=== PATIENT | female | born 1975 | race Caucasian/White ===

== ENCOUNTER 2021-02-05 18:57 | Emergency (ER) | payer OTHER ==
[~2021-02-05] VITALS: Ht 157.5 cm; Wt 52.2 kg
[2021-02-05] MEDS ORDERED: ONE DAILY WITH1 EACH (19:11)
== END 2021-02-05 20:26 | disposition home or self-care (01) ==
LOC: ER 18:57
DX: S09.8XXA Other specified injuries of head, initial encounter (principal); W05.2XXA Fall from non-moving motorized mobility scooter, initial encounter; Y93.89 Activity, other specified; Y92.89 Other specified places as the place of occurrence of the external cause; Y99.8 Other external cause status